=== PATIENT | male | born 1960 | race Two or more races ===

== ENCOUNTER 2019-10-25 10:02 | Emergency (ER) | payer BC ==
[~2019-10-25] VITALS: Ht 180.3 cm; Wt 115.7 kg
--- NOTE | 2019-10-25 10:02 | NUR ---
BIB RA 39 FROM HOME,FOUND ON THE BATHROOM FLOOR BY BROTHER, UNABLE TO GET UP, FELL LAST NIGHT PER PT, NOTED TO BE MORE ALTERED SINCE DAYS ELECTRON BEAM WELDING MACHINE OPERATOR, PT AWAKE, ALERT, -SOB, NAD NOTED, PENDING MD DALY
[2019-10-25] MEDS ORDERED: ASPI-605 PO (10:10)
[2019-10-25 10:25] LABS: BASOPHILS # (AUTO) 0.3 /CMM (0.0-0.2); EOSINOPHILS % (AUTO) 0.5 % (0.0-6.0); HEMATOCRIT 43 % (39-51); LYMPHOCYTES # (AUTO) 0.7 /CMM (0.8-4.8); LYMPHOCYTES % (AUTO) 6.2 % (20.0-44.0); MEAN CORPUSCULAR HGB CONC 35 g/dl (31.0-36.0); MEAN CORPUSCULAR VOLUME 92 fL (80-96); MONOCYTES # (AUTO) 0.6 /CMM (0.1-1.30); MONOCYTES % (AUTO) 5.4 % (2.0-12.0); NEUTROPHILS % (AUTO) 84.9 % (43.0-81.0); PLATELET COUNT (AUTO) 221 /CMM (150-450); WHITE BLOOD COUNT (AUTO) 10.6 K/uL (4.3-11.0)
[2019-10-25 10:39] LABS: CALCIUM, SERUM 9.3 mg/dL (8.5-10.1); CARBON DIOXIDE 30 mmol/L (21-32); CHLORIDE 107 mmol/L (98-107); GLUCOSE 119 mg/dL (74-106); POTASSIUM 3.7 mmol/L (3.5-5.1); SODIUM SERUM 145 mmol/L (136-145); UREA NITROGEN, BLOOD 21 mg/dL (7-18)
[2019-10-25 10:45] LABS: ALANINE AMINOTRANSFERASE 38 U/L (12-78); ALBUMIN 3.7 g/dL (3.4-5.0); ALCOHOL, BLOOD < 3 mg/dL (0-0); ALKALINE PHOSPHATASE 114 U/L (46-116); ASPARTATE AMINOTRANSFERASE 53 U/L (15-37); BILIRUBIN,DIRECT 0.2 mg/dL (0.0-0.2); BILIRUBIN,TOTAL 1.1 mg/dL (0.2-1.0); TOTAL PROTEIN, SERUM 6.6 g/dL (6.4-8.2)
--- NOTE | 2019-10-25 11:13 | NUR ---
PT NEUROLLOGIST: DR MCADAMS [phone]. HOME: [phone] Addendum: 10/25/[address] IZQUIERDO*: [phone]
--- NOTE | 2019-10-25 11:29 | NUR ---
pt unable to provide urine sample at this time, per dr. maloney, urine not important at this time
--- NOTE | 2019-10-25 11:30 | NUR ---
PAGED DR MCADAMS FOR CONSULT
--- NOTE | 2019-10-25 11:40 | NUR ---
PAGED DR CRAWFORD, SENT IMAGES
--- NOTE | 2019-10-25 11:50 | NUR ---
DR CRAWFORD SPEAKING WITH DR OLVERA
--- NOTE | 2019-10-25 11:53 | NUR ---
DR CRAWFORD ACCEPTS PT WILL TRANSFER TO [facility]
--- NOTE | 2019-10-25 11:58 | NUR ---
TATO SNYDER FROM [facility] REQUESTS FACESHEET AND CLINICALS WILL CALL BACK WITH BED INFORMATION
--- NOTE | 2019-10-25 11:59 | NUR ---
FAXED FACESHEET AND CLINICALS TO [facility]
[2019-10-25] MEDS ORDERED: DEXAMETHASONE SOD PHOSPHATE 10 MG in IV D5W 50 ML IV ONE (12:00)
--- NOTE | 2019-10-25 12:23 | NUR ---
TRANSFER INFO: [facility]. PT WILL GO DIRECT ADMIT TO ROOM 4404 BED 1, RN FOR REPORT [phone] OPT 1 EXT [id number]
[2019-10-25] MEDS ORDERED: DEXAMETHASONE SOD PHOSPHATE 10 MG/ML VIAL ONE (12:28)
[2019-10-25] MEDS ORDERED: DEXAMETHASONE SOD PHOSPHATE 10 MG/ML VIAL IV ONE (12:30)
--- NOTE | 2019-10-25 12:31 | NUR ---
[facility] ETA 1330 TRIP#[id number]
--- NOTE | 2019-10-25 13:24 | NUR ---
REPORT GIVEN TO KIRA VARGAS AT [facility]
--- NOTE | 2019-10-25 13:38 | NUR ---
BRYSON CROOKS AT BEDSIDE
--- NOTE | 2019-10-25 14:06 | NUR ---
cancelled transfer to [place] will be going to [facility] instead
--- NOTE | 2019-10-25 14:26 | NUR ---
CALLED DR MCADAMS REGARDING PT TRANSFER, LEFT VOICEMAIL
--- NOTE | 2019-10-25 14:37 | NUR ---
DR MCADAMS: [phone]
[2019-10-25] MEDS ORDERED: IV NS 0.9% 1,000 ML BAG IV ONE (15:00)
--- NOTE | 2019-10-25 15:07 | NUR ---
[facility] called for updates, explained pt's situation, they will keep the bed on standby for now.
--- NOTE | 2019-10-25 15:13 | NUR ---
dr rahman called back with accepting md: dr richey ICU and neurosurgeoon dr. castellanos
--- NOTE | 2019-10-25 15:21 | NUR ---
[facility] 1630 TRIP#[id number]
--- NOTE | 2019-10-25 15:43 | NUR ---
PER JAVIER WOODARD AT [facility], LOCATING ICU BED AND WILL FOLLOW UP IN 15 MINUTES
--- NOTE | 2019-10-25 16:30 | NUR ---
PER RN SUDEEP WOODARD AT [facility], WILL CALL BACK AT 7P TO GIVE ICU BED
--- NOTE | 2019-10-25 17:54 | NUR ---
PER JAVIER WOODARD AT [facility], PT WILL BE ACCEPTED THROUGH THE ER BY DR BERNABE, PLEASE CALL [facility] AT [phone] FOR REPORT Addendum: 10/25/19 at 1958 by YEHUDA CURTAIN SUPERVISOR CHRIS FOR REPORT
--- NOTE | 2019-10-25 17:59 | NUR ---
ADAM RUCKER 193
--- NOTE | 2019-10-25 18:12 | NUR ---
report given to diony france at [facility] for abdiel
--- NOTE | 2019-10-25 19:36 | NUR ---
Patient is resting comfortably in bed with no s/s of pain or discomfort. awaiting for the tranportation. will cont to monitor ,
[2019-10-25 19:45] VITALS: BP 163/84
--- NOTE | 2019-10-25 19:45 | NUR ---
report given to tawanda environmental law professor
--- NOTE | 2019-10-25 20:00 | NUR ---
Patient was transferred to [facility] in stable condition via gurney. all the belongings picked up.
== END 2019-10-25 20:03 | disposition short-term general hospital (02) ==
LOC: ER 10:06
DX: G93.9 Disorder of brain, unspecified (principal); R53.1 Weakness; R79.89 Other specified abnormal findings of blood chemistry; E11.9 Type 2 diabetes mellitus without complications; Z98.890 Other specified postprocedural states; Z88.0 Allergy status to penicillin; Z88.6 Allergy status to analgesic agent; Z79.82 Long term (current) use of aspirin
CPT/HCPCS: 36415; 70450; 71045; 72125; 80048; 80076; 80307; 82550 ×2; 84484; 85025; 85730; 93005; 96374; 99291; J1100; J7040; G0480; J7060

== ENCOUNTER 2020-03-03 06:19 | Inpatient (IN) | payer BC ==
[~2020-03-03] VITALS: Ht 188 cm; Wt 106.1 kg
[~2020-03-03 06:19] MED LIST: ASPI-605 PO
--- NOTE | 2020-03-03 06:26 | NUR ---
PATIENT CAME TO ER BED 4 BIB RA C/O SEIZURE FOR "5 MINUTES", ACCORDING TO EMS. PATIENT ARRIVED TO ER POST-ICTAL, NOT ANSWERING QUESTIONS. ALERT AND AWAKE. PATIENT BREATHING EVENLY AND UNLABORED ON ROOM AIR 100%. CONNECTED TO FRICTION WELDING MACHINE OPERATOR.
--- NOTE | 2020-03-03 06:30 | NUR ---
EKG AT BEDSIDE
--- NOTE | 2020-03-03 06:30 | NUR ---
ER MD LUNDBREG AT BEDSIDE
--- NOTE | 2020-03-03 06:39 | NUR ---
SEIZURE EPISODE ACCURE WITNESSED BY JAVIER CATALAN FOR 3 MINS, ATIVAN 2 MG IM GIVEN PER .
--- NOTE | 2020-03-03 06:39 | NUR ---
DR. LUNDBERG AT BEDSIDE.
[2020-03-03] MEDS ORDERED: LORAZEPAM INJ 2 MG/ML VIAL ONE (06:40)
--- NOTE | 2020-03-03 06:41 | NUR ---
PHARMACY CALLED FOR KEPPRA MEDICATION
--- NOTE | 2020-03-03 06:45 | NUR ---
PT IV LINE ESTABLISHED, BLOOD DRAWN AND SENT TO LAB.
[2020-03-03] MEDS ORDERED: LEVETIRACETAM (500MG) 500 MG/5 ML VIAL IV ONE (06:54)
--- NOTE | 2020-03-03 06:55 | NUR ---
PHARMACY CALLED FOR KEPPRA MEDICATION.
[2020-03-03 06:59] LABS: BASOPHILS % (AUTO) 0.3 % (0.0-2.0); EOSINOPHILS % (AUTO) 0.1 % (0.0-6.0); HEMATOCRIT 41 % (39-51); HEMOGLOBIN 13.5 g/dL (13.5-17.5); LYMPHOCYTES # (AUTO) 2.9 /CMM (0.8-4.8); LYMPHOCYTES % (AUTO) 20.4 % (20.0-44.0); MEAN CORPUSCULAR HGB CONC 33 g/dl (31.0-36.0); MEAN CORPUSCULAR VOLUME 94 fL (80-96); MONOCYTES # (AUTO) 0.9 /CMM (0.1-1.30); MONOCYTES % (AUTO) 6.5 % (2.0-12.0); NEUTROPHILS # (AUTO) 10.2 /CMM (1.8-8.9); NEUTROPHILS % (AUTO) 72.7 % (43.0-81.0); PLATELET COUNT (AUTO) 256 /CMM (150-450); RED BLOOD CELL COUNT(AUTO) 4.35 MIL/uL (4.5-6.0)
[2020-03-03] MEDS ORDERED: LORAZEPAM INJ 2 MG/ML VIAL IM ONE (07:00)
[2020-03-03] MEDS ORDERED: LEVETIRACETAM (500MG) 500 MG in IV NS 0.9% 100 ML IV ONE (07:00)
--- NOTE | 2020-03-03 07:02 | NUR ---
PT 2ND WITNESSED SEIZURE EPISODE OCCURRED FOR 2MINS AND 30SECS.
[2020-03-03 07:14] LABS: ALBUMIN 3.2 g/dL (3.4-5.0); BILIRUBIN,DIRECT 0.1 mg/dL (0.0-0.2); BILIRUBIN,TOTAL 0.6 mg/dL (0.2-1.0); CALCIUM, SERUM 8.6 mg/dL (8.5-10.1); CREATININE 1.2 mg/dL (0.6-1.3); POTASSIUM 3.5 mmol/L (3.5-5.1); TOTAL PROTEIN, SERUM 6.1 g/dL (6.4-8.2)
--- NOTE | 2020-03-03 07:15 | NUR ---
PT PRIMARY ONCOLOGIST CONTACT INFO: DR. HALEIGH IZQUIERDO [email or web address]
--- NOTE | 2020-03-03 07:20 | NUR ---
REPORT GIVEN TO EDA HERRERA FOR JESSE.
--- NOTE | 2020-03-03 07:20 | NUR ---
PLASTIC CUTTER AT BEDSIDE TO TAKE PATIENT TO CT.
--- NOTE | 2020-03-03 07:20 | NUR ---
REPORT RECEIVED FROM ROXY VICK RN FOR JESSE
--- NOTE | 2020-03-03 07:22 | NUR ---
PATIENT WHEELED OUT VIA GURNEY FOR CT SCAN
[2020-03-03 07:27] LABS: LYMPHOCYTES % (MANUAL) 23 % (16-48); MONOCYTES % (MANUAL) 3 % (0-11.0); NEUTROPHILS % (MANUAL) 74 (42-76)
[2020-03-03] MEDS ORDERED: LORAZEPAM INJ 2 MG/ML VIAL IV ONE (07:30)
--- NOTE | 2020-03-03 07:37 | NUR ---
BACK FROM CT SCAN.
[2020-03-03] MEDS ORDERED: INSU300I SQ (07:56)
[2020-03-03] MEDS ORDERED: ATOR40TA PO (07:56)
[2020-03-03] MEDS ORDERED: LACO50TA2 PO (07:56)
[2020-03-03] MEDS ORDERED: APIX2.5T PO (07:56)
[2020-03-03] MEDS ORDERED: LOSA100T31 PO (07:56)
[2020-03-03] MEDS ORDERED: DEXA2TAB PO (07:56)
[2020-03-03] MEDS ORDERED: CHOL200076 PO (07:56)
[2020-03-03] MEDS ORDERED: MULT-447 PO (07:56)
[2020-03-03] MEDS ORDERED: INSU100I14 SQ (07:56)
[2020-03-03] MEDS ORDERED: AMLO5TAB9 PO (07:56)
[2020-03-03] MEDS ORDERED: CHLO25TA2 PO (07:56)
[2020-03-03] MEDS ORDERED: [UNRECOGNIZED DRUG - CODE] PO (07:56)
[2020-03-03] MEDS ORDERED: LEVETIRACETAM (500MG) 1,500 MG in IV NS 0.9% 100 ML IV SCH ×2 (09:00→10:30)
--- NOTE | 2020-03-03 09:10 | NUR ---
ON 91% O2 SATURATION AT ROOM AIR, PLACED ON 2LPM NC
--- NOTE | 2020-03-03 10:13 | NUR ---
CALLED DR. HALEIGH IZQUIERDO TO FOLLOW UP WITH STATUS OF PT EARLE. HE SPOKE WITH CASE MANAGEMENT TO SEE IF THERE WAS BED AVAILABILITY. FOR NOW NO STATUS ON BED BUT CM WILL REACH OUT TO US TO SET UP TRANSFER INFORMATION WHEN AVAILABLE.
--- NOTE | 2020-03-03 12:02 | NUR ---
CALLED NURSING SUP FOR TELE BED.
--- NOTE | 2020-03-03 12:22 | NUR ---
ASHLYN SHEETS GAVE TELE BED [phone]. BETHANY IS THE NURSE.
--- NOTE | 2020-03-03 12:46 | NUR ---
PAGED [facility].
--- NOTE | 2020-03-03 12:55 | NUR ---
REPORT GIVEN TO BETHANY HERRERA OF TELE UNIT
[2020-03-03 13:10] VITALS: BP 147/97
--- NOTE | 2020-03-03 13:10 | NUR ---
Received patient via [facility]. Deep sleep, arosable to touch and name. Patient adm. to Tele, currently SR HR 65. Patient present with 2 IV lines ; LAC 18 hl. r wrist #20 g , both flushing well. Patient has multiple old scars and dry scabs on arms and legs, redness on scrotum and lower back. Pictures are taken and placed in the chart. Patient has no belonging. Safety measures observed , seizure precautions initiated. Suction set up. VS are stable , saturation 97% on 2l O2. Saturation on room air 91 %. Awaiting for adm. orders. Will continue to monitor
[2020-03-03] MEDS ORDERED: ZOLPIDEM TARTRATE 5 MG TABLET PO PRN (14:00)
[2020-03-03] MEDS ORDERED: MAG HYDROX/AL HYDROX/SIMETH 30 ML UDC PO PRN (14:00)
[2020-03-03] MEDS ORDERED: Z GUARD REMEDY 2 OZ OINT TP PRN (14:00)
[2020-03-03] MEDS ORDERED: ONDANSETRON HCL/PF 4 MG/2 ML VIAL IVP PRN (14:00)
[2020-03-03] MEDS ORDERED: HYDROCODONE/APAP 5/325MG 1 EACH TABLET PO PRN (14:00)
[2020-03-03] MEDS ORDERED: MAGNESIUM HYDROXIDE 30 ML UDC PO PRN (14:00)
[2020-03-03] MEDS ORDERED: ACETAMINOPHEN 325 MG TABLET PO PRN (14:00)
[2020-03-03] MEDS ORDERED: LORAZEPAM INJ 2 MG/ML VIAL IV PRN (14:30)
[2020-03-03] MEDS ORDERED: TRAMADOL HCL 50 MG TABLET PO PRN (15:00)
[2020-03-03 16:00] VITALS: BP 132/91
[2020-03-03 17:00] VITALS: BP 132/91
[2020-03-03] MEDS: LACOSAMIDE 100 MG in IV NS 0.9% 50 ML IV SCH (18:35)
--- NOTE | 2020-03-03 18:51 | NUR ---
Patient seen by Dr. Jackson. Patient more awake now, responding to stimuli. VS remain stable. Saturation 98% on 2 L O2. Safety precautions implemented. On tele monitor SR with HR 62. Patient kepr comfortable. Will endorse to next shift for JESSE.
--- NOTE | 2020-03-03 19:20 | NUR ---
RESTAURANT AND BAR MANAGER OPENING NOTES RECEIVED PATIENT SLEEPING IN BED, IS VERY DROWSY, AWAKENS TO NAME AND BY TOUCH. ON 2L NC. NO S/S OF ACUTE RESPIRATORY DISTRESS OR PAIN NOTED. TELE MONITOR READING NSR, HEART RATE 60. IV PRESENT ON LEFT AC, SIZE 18, INTACT AND PATENT. SAFETY MEASURES IN PLACE. BED LOCKED, ALARM ON, SIDE RAILS X3, AND PADDED FOR SEIZURE PRECAUTION, CALL LIGHT WITHIN REACH. WILL CONTINUE TO MONITOR.
[2020-03-03 20:00] VITALS: BP 134/71
[2020-03-03] MEDS: LEVETIRACETAM (500MG) 500 MG in IV NS 0.9% 100 ML IV SCH (20:39)
[2020-03-03] MEDS ORDERED: IV D5/0.45 NACL 1,000 ML IV ONE (21:30)
[2020-03-04] VITALS: BP_SYST 105; BP_SYST 149; BP_DIAS 56; BP_DIAS 95
[2020-03-04] MEDS: DEXTROSE 50%-WATER 50 ML DISP.SYRIN IV PRN ×2 (00:57→06:07)
[2020-03-04] MEDS: BLOOD SUGAR DIAGNOSTIC 1 EACH STRIP IN SCH ×6 (01:11→21:25)
--- NOTE | 2020-03-04 01:30 | NUR ---
NURSE SEXUAL ASSAULT NOTES PATIENT'S BLOOD SUGAR 46. PATIENT IS DROWSY, BUT OPENS EYES WHEN NAME IS CALLED. BLOOD SUGAR BACK TO 185 AFTER PRN DEXTROSE WAS PUSHED VIA IV.
[2020-03-04 04:00] VITALS: BP 125/57
[2020-03-04 06:17] LABS: BASOPHILS % (AUTO) 0.3 % (0.0-2.0); EOSINOPHILS % (AUTO) 0.7 % (0.0-6.0); HEMATOCRIT 39 % (39-51); HEMOGLOBIN 13.4 g/dL (13.5-17.5); LYMPHOCYTES # (AUTO) 1.5 /CMM (0.8-4.8); LYMPHOCYTES % (AUTO) 16.9 % (20.0-44.0); MEAN CORPUSCULAR HGB CONC 34 g/dl (31.0-36.0); MEAN CORPUSCULAR VOLUME 92 fL (80-96); MONOCYTES # (AUTO) 0.5 /CMM (0.1-1.30); MONOCYTES % (AUTO) 5.7 % (2.0-12.0); NEUTROPHILS # (AUTO) 6.6 /CMM (1.8-8.9); NEUTROPHILS % (AUTO) 76.4 % (43.0-81.0); PLATELET COUNT (AUTO) 190 /CMM (150-450); RED BLOOD CELL COUNT(AUTO) 4.25 MIL/uL (4.5-6.0); WHITE BLOOD COUNT (AUTO) 8.7 K/uL (4.3-11.0)
--- NOTE | 2020-03-04 06:40 | NUR ---
CAREER TECHNICAL EDUCATION INSTRUCTOR NOTES PATIENT'S BLOOD SUGAR 46. PATIENT IS AWAKE AND ALERT TO NAME, HOWEVER IS STILL CONFUSED. PRN DEXTROSE PUSHED VIA IV. BLOOD SUGAR RECHECKED, 126.
[2020-03-04 07:24] LABS: ALBUMIN 2.6 g/dL (3.4-5.0); BILIRUBIN,DIRECT 0.1 mg/dL (0.0-0.2); BILIRUBIN,TOTAL 0.7 mg/dL (0.2-1.0); CALCIUM, SERUM 8.8 mg/dL (8.5-10.1); CREATININE 0.7 mg/dL (0.6-1.3); MAGNESIUM 2.5 mg/dL (1.8-2.4); PHOSPHORUS 3.1 mg/dL (2.5-4.9); POTASSIUM 3.2 mmol/L (3.5-5.1); TOTAL PROTEIN, SERUM 5.5 g/dL (6.4-8.2)
--- NOTE | 2020-03-04 07:35 | NUR ---
MAGAZINE REPAIRER CLOSING NOTES PATIENT SLEEPING IN BED, EASY TO AWAKEN. ON 2L NC. NO S/S OF ACUTE RESPIRATORY DISTRESS OR PAIN NOTED. TELE MONITOR READING NSR, HEART RATE 61. IV PRESENT ON LEFT AC, SIZE 18, INTACT AND PATENT WITH D5 1/2 NS RUNNING AT 75 ML/HR. SAFETY MEASURES IN PLACE. BED LOCKED, ALARM ON, SIDE RAILS X3, AND PADDED FOR SEIZURE PRECAUTION, CALL LIGHT WITHIN REACH. WILL ENDORSE TO DAY SHIFT NURSE PLAN OF CARE.
--- NOTE | 2020-03-04 07:40 | NUR ---
TELE/RN OPENING NOTES PATIENT SLEEPING IN BED, EASY TO AWAKEN. ON 2L NC. NO S/S OF ACUTE RESPIRATORY DISTRESS OR PAIN NOTED. IV PRESENT ON LEFT AC, SIZE 18, INTACT AND PATENT WITH D5 1/2 NS RUNNING AT 75 ML/HR. SAFETY MEASURES IN PLACE. BED LOCKED, ALARM ON, SIDE RAILS X3, AND PADDED FOR SEIZURE PRECAUTION, CALL LIGHT WITHIN REACH. WILL CONTINUE TO MONITOR.
[2020-03-04 08:05] VITALS: BP 125/57
--- NOTE | 2020-03-04 09:00 | NUR ---
TELE/RN NOTES PATIENT REMOVED THE IV ACCESS. INITIATED IV INSERTION AT THE RIGHT FOREARM 18G. PATENT AND INTACT.
[2020-03-04] MEDS: LACOSAMIDE 100 MG in IV NS 0.9% 50 ML IV SCH ×2 (09:41→20:07)
[2020-03-04] MEDS: LEVETIRACETAM (500MG) 500 MG in IV NS 0.9% 100 ML IV SCH ×3 (10:42→21:25)
[2020-03-04] MEDS: POTASSIUM CHLORIDE 20 MEQ TAB.PRT.SR PO SCH ×2 (11:26→12:06)
[2020-03-04] MEDS: INSULIN REGULAR, HUMAN 100 UNIT/ML 3 ML VIAL SQ PRN ×2 (12:22→17:31)
--- NOTE | 2020-03-04 13:13 | NUR ---
TELE/RN NOTES BS 323MG/DL INSULIN 12 UNIT WAS GIVEN.
[2020-03-04 16:00] VITALS: BP 123/82
--- NOTE | 2020-03-04 16:04 | NUR ---
TELE/RN NOTES PATIENT IS PULLING IV LINE AND GETTING UP ON BED MD IS AWARE AND ORDER BILATERAL SOFT RESTRAINTS.
--- NOTE | 2020-03-04 17:09 | NUR ---
TELE/RN NOTES ERICK BROTHER OF THE PATIENT WANT TO TALK TO THE DOCTOR. DOCTOR BRIDGETTE IS AWARE.
--- NOTE | 2020-03-04 19:30 | NUR ---
FARM INSTRUCTOR OPENING NOTES RECEIVED PATIENT IN BED. A/OX2-3. TOLERATING ROOM AIR. RESPIRATIONS ARE EVEN AND UNLABORED. NO S/S SOB NOTED. DENIES PAIN AT THIS TIME. EXTERNAL TELE MONITOR READS SINUS RHYTHM HR 80 WITH PAC. IN NO APPARENT DISTRESS. IV ACCESS IN RFA#18 PATENT AND SALINE LOCKED. PATIENT IS ON BILATERAL SOFT WRIST RESTRAINTS, GOOD CAP REFILL NOTED, NO REDNESS NOTED, 2 FINGER BREATHS BETWEEN SKIN AND RESTRAINT. BED IS LOW AND LOCKED HOB ELEVATED IN SEMI FOWLERS, SIDE RAILS UP X4, SEIZURE PRECAUTIONS IN PLACE. BED ALARM ON. CALL LIGHT WITHIN REACH. WILL CONTINUE TO MONITOR.
--- NOTE | 2020-03-04 19:47 | NUR ---
TELE/RN CLOSING NOTES PATIENT IS ON BED. PATIENT IS ALERT, ORIENTED X 2-3. PATIENT IS LETHARGIC BUT EASILY AROUSABLE. PATIENT IS WITH BILATERAL RESTRAIN. PATIENT NO APPARENT DISTRESS NOTED.PATIENT DENIES PAIN AT THIS TIME. NO S/S OF SEIZURE THE WHOLE SHIFT. SEEN AND EXAMINED BY MD WITH ORDER MADE AND CARRIED OUT. ALL DUE MEDS WAS GIVEN. BED IN LOWEST POSITION SIDE RAILS UP X 2. CALL LIGHT WITHIN REACH. WILL ENDORSED TO PARTS COUNTER SPECIALIST FOR JESSE.
[2020-03-04 20:00] VITALS: BP 148/84
[2020-03-04 20:26] VITALS: BP 148/74
[2020-03-05] MEDS ORDERED: HYDROCORTISONE SOD SUCCINATE 100 MG/2 ML VIAL IV SCH
[2020-03-05] MEDS: BLOOD SUGAR DIAGNOSTIC 1 EACH STRIP IN SCH ×6 (00:25→21:41)
[2020-03-05 04:00] VITALS: BP 147/81
[2020-03-05 05:05] VITALS: BP 147/81
[2020-03-05] MEDS: DEXAMETHASONE SOD PHOSPHATE 4 MG/ML VIAL IV SCH ×3 (05:23→17:17)
--- NOTE | 2020-03-05 06:58 | NUR ---
CARDROOM HAND CLOSING NOTES PATIENT IN BED. A/OX2-3. TOLERATING ROOM AIR. RESPIRATIONS ARE EVEN AND UNLABORED. NO SOB NOTED. NO C/O PAIN. EXTERNAL TELE MONITOR READS SINUS RHYTHM HR 67. NO DISTRESS NOTED. IV ACCESS MAINTAINED IN RFA#18 PATENT AND SALINE LOCKED. PATIENT REMAINS ON BILATERAL SOFT WRIST RESTRAINTS, GOOD CAP REFILL NOTED, NO REDNESS NOTED, 2 FINGER BREATHS BETWEEN SKIN AND RESTRAINT. BED REMAINS LOW AND LOCKED HOB ELEVATED IN SEMI FOWLERS, SIDE RAILS UP X4, SEIZURE PRECAUTIONS IN PLACE. BED ALARM ON. CALL LIGHT WITHIN REACH. WILL ENDORSE TO NEXT SHIFT. WILL EXPRESS BROTHERS CONCERNS FOR PATIENT (PRIMARY CIGAR INSPECTOR FOR PATIENT): WANTS TO SPEAK WITH MD REGARDING PATIENT WANTS TO BRING PATIENTS CHEMOTHERAPY DRUGS; NEEDS TO TAKE TWICE DAILY WANTS TO INFORM MD THAT PATIENT STOPPED TAKING KEPPRA D/T SIDE EFFECTS INCLUDING DROWSINESS AND CONFUSION WANTS TO INFORM CARE TEAM THAT PATIENT WAS SUPPOSED TO RECEIVE RADIATION YESTERDAY 03/04.
--- NOTE | 2020-03-05 07:30 | NUR ---
MEDICAL ACCOUNTING CLERK OPENING NOTES RECEIVED PT IN BED, AWAKE, A/O X1-2.PT ON SUPPLEMENTARY OXYGEN AT 2LPM VIA NC, WITH NO ACUTE RESPIRATORY DISTRESS NOTED. PT DENIES ANY PAIN OR DISCOMFORT AT THIS TIME. ON TELEMONITORING WITH PACS, SR HR 73. rFA G18 TKO NS RUNNING, INTACT AND OPERATIONAL. PER NIGHT NURSE VONNIE, PT IS SCHEDULED FOR MRI TODAY AND CONSENT GOT VIA PHONE WITH BROTHER/ERICK. ALSO, BROTHER WANTED TO TALK TO MD/HOSPITALIST REGARDING CONDITIONOF PT AND WANTED TO INFORM ABOUT THE RADIATION THERAPY OF PT THAT WAS MISSED YESTERDAY. RN TO FOLLOW UP WITH MD. PT KEPT COMFORTABLE IN BED. SEIZURE PRECAUTIONS MAINTAINED, PADDED SIDE RAILS. CALL LIGHT KEPT WITHIN REACH. PT'S BED IN LOWEST, LOCKED POSITION WITH SRX4. WILL CONTINUE PLAN OF CARE.
[2020-03-05 08:00] VITALS: BP 160/88
[2020-03-05] MEDS: LACOSAMIDE 100 MG in IV NS 0.9% 50 ML IV SCH ×2 (08:37→21:41)
--- NOTE | 2020-03-05 08:40 | NUR ---
SPIKE DRIVER NOTES SEEN AND EVALUATED BY DR. ANGELES. RN INFORMED MD REGARDING BROTHER/ERICK'S WISH TO SPEAK TO HIM AND INFORMED REGARDING CHEMO MEDS AND RADIATION THERAPY THAT WAS MISSED. PER MD/KR, "I'LL CALL THE BROTHER LATER" AND ADDED "YES, I DO HAVE THE NUMBER." WILL CONTINUE TO MONITOR PT.
[2020-03-05 08:45] LABS: BASOPHILS % (AUTO) 0.2 % (0.0-2.0); HEMATOCRIT 41 % (39-51); HEMOGLOBIN 13.9 g/dL (13.5-17.5); LYMPHOCYTES # (AUTO) 0.5 /CMM (0.8-4.8); LYMPHOCYTES % (AUTO) 4.8 % (20.0-44.0); MEAN CORPUSCULAR HGB CONC 34 g/dl (31.0-36.0); MEAN CORPUSCULAR VOLUME 92 fL (80-96); MONOCYTES # (AUTO) 0.4 /CMM (0.1-1.30); MONOCYTES % (AUTO) 4.1 % (2.0-12.0); NEUTROPHILS # (AUTO) 9.5 /CMM (1.8-8.9); NEUTROPHILS % (AUTO) 90.9 % (43.0-81.0); PLATELET COUNT (AUTO) 212 /CMM (150-450); WHITE BLOOD COUNT (AUTO) 10.5 K/uL (4.3-11.0)
[2020-03-05 09:00] LABS: CALCIUM, SERUM 8.8 mg/dL (8.5-10.1); CREATININE 0.9 mg/dL (0.6-1.3); MAGNESIUM 2.3 mg/dL (1.8-2.4); PHOSPHORUS 3.4 mg/dL (2.5-4.9)
--- NOTE | 2020-03-05 09:47 | NUR ---
CUTTER V GROOVE NOTES PT LEFT THE UNIT FOR MRI/BRAIN PROCEDURE. TRANSPORTED PT VIA GURNEY. IV MEDICINE, VIMPAT, PAUSED AT THIS TIME.
--- NOTE | 2020-03-05 10:41 | NUR ---
WOUND CARE: PT OFF UNIT AT THIS TIME. WILL SEE PT PT CONDITION PERMITS.
--- NOTE | 2020-03-05 10:47 | NUR ---
CROWN IRONER OPERATOR NOTES PT JUST CAME BACK FROM MRI. IV MED RESUMED. HOOKED BACK TO TELEMONITORING. WILL CONTINUE TO MONITOR.
[2020-03-05] MEDS: LEVETIRACETAM (500MG) 500 MG in IV NS 0.9% 100 ML IV SCH ×2 (10:54→21:41)
[2020-03-05] MEDS: INSULIN REGULAR, HUMAN 100 UNIT/ML 3 ML VIAL SQ PRN ×3 (13:54→21:47)
[2020-03-05 16:00] VITALS: BP 153/77
--- NOTE | 2020-03-05 16:22 | NUR ---
SHOVEL HANDLE ASSEMBLER NOTES RECEIVED CALL FROM DR. ROBERTS. PER , SHE'LL SPEAK TO PMD OF PT AND PLAN IS FOR PT TO GO HOME WITH HOMEHEALTH AND CONTINUE CHEMO MEDS. WILL ENDORSE TO INCOMING NIGHT NURSE WELL.
--- NOTE | 2020-03-05 18:36 | NUR ---
CALCULATION REVIEWER CLOSING NOTES PT REMAINS IN BED, INTERMITTENTLY DOZING OFF, A/O X2-3. PT ON SUPPLEMENTARY OXYGEN AT 2LPM VIA NC, WITH NO ACUTE RESPIRATORY DISTRESS NOTED. PT DENIES ANY PAIN OR DISCOMFORT AT THIS TIME. ON TELEMONITORING WITH PACS, SR HR 75. RFA G18 TKO NS RUNNING, INTACT AND OPERATIONAL. PT KEPT COMFORTABLE IN BED. SEIZURE PRECAUTIONS MAINTAINED, PADDED SIDE RAILS. ALL NEEDS AND CARE ATTENDED. CALL LIGHT KEPT WITHIN REACH. PT'S BED IN LOWEST, LOCKED POSITION WITH SRX4. WILL ENDORSE TO INCOMING NIGHT NURSE FOR JESSE.
--- NOTE | 2020-03-05 19:15 | NUR ---
RN NOTES: RECEIVED ASLEEP ON BED IN HIGH FOWLERS POSITION, BREATHING SPONTANEOUSLY WITH O2 AT 2L/MIN VIA NC, SEIZURE PRECAUTION NOTED, WITH PADDED SIDE RAILS, ON TELE MONITOR SINUS RHYTHM RATE-67, ON BLOOD SUGAR MONITOR, IV SITE ON RFA G#18 TKO, HE IS NO LONGER RESTLESS PER ENDORSEMENT THEREFORE RESTRAINT ORDER WAS NOT RENEW ANYMORE, PER RN-MORNING SHIFT FOR MED-[facility] TOMORROW,FURTHERMORE, AROUND 1800 ONCO- OK TO TEMPORARILY HOLD CHEMO DRUGS AND RADIATION SESSION WHILE IN HOSPITAL,ONCE HE WILL BE DISCHARGE BACK HOME, H/H WILL BE ARRANGE AND RESUME 2 TREATMENT TOGETHER PER ENDORSEMENT. -ON CLOSE WATCH, FREQUENT VISUAL CHECK DONE,SEIZURE, FALL,SAFETY AND ASPIRATION PRECAUTION OBSERVED, BED LOW AND LOCKED, CALL LIGHT WITHIN EASY REACH.
[2020-03-05 20:00] VITALS: BP 157/81
[2020-03-06] VITALS: BP 144/72
[2020-03-06 00:01] VITALS: BP 149/72
[2020-03-06] MEDS: DEXAMETHASONE SOD PHOSPHATE 4 MG/ML VIAL IV SCH ×4 (00:29→18:20)
[2020-03-06] MEDS: BLOOD SUGAR DIAGNOSTIC 1 EACH STRIP IN SCH ×5 (00:44→17:15)
[2020-03-06] MEDS: INSULIN REGULAR, HUMAN 100 UNIT/ML 3 ML VIAL SQ PRN ×5 (00:46→17:20)
--- NOTE | 2020-03-06 02:57 | NUR ---
RN NOTES: -AT 21OO BLOOD SUGAR CHECK-276, INSULIN 9 UNITS GIVEN, CONTINUE TO MONITOR FOR SIGN OF HYPER AND HYPOGLYCEMIA. -AT 0100 BLOOD SUGAR CHECK-295, INSULIN 9 UNITS GIVEN , PATIENT IS ASLEEP, CONTINUE TO MONITOR FOR SEIZURE. NO SIGN OF AGITATION NOTED, DUE IV MEDS GIVEN ORDERED.
[2020-03-06 04:00] VITALS: BP 166/85
--- NOTE | 2020-03-06 05:15 | NUR ---
RN NOTES: LATEST BLOOD SUGAR-253, 9 UNITS INSULIN GIVEN PER SCALE, KEPT ON CLOSE WATCH, AWAKE IN BETWEEN WHEN HE HEARD HIS ROOM MATE SHOUTING WHEN HE WAS CHANGE. NO PAIN OF DISCOMFORT.
--- NOTE | 2020-03-06 06:38 | NUR ---
RN NOTES: MORNING CARE DONE, STILL ON SR RATE-56, NO PAIN OR DISCOMFORT, SLEEP WELL IN THE NIGHT, SKIN TREATMENT DONE, NO SEIZURE NOTED IN THE ENTIRE SHIFT, ENDORSED FOR CONTINUITY OF CARE TO FOLLOW UP WITH PMD IF HE CALL PATIENT'S BROTHER, HE HAS MANY CONCERN HE WANTS TO DISCUSSED.
--- NOTE | 2020-03-06 07:10 | NUR ---
RN OPENING NOTES RECEIVED PATIENT IN BED RESTING. A/OX2-3,LETHARGIC. NOT IN ANY FORM OF DISTRESS. NO SOB. DENIED PAIN OR DISCOMFORT AT THIS TIME. IV ACCESS INTACT AND PATENT. KEPT PATIENT SAFE AND COMFORTABLE. BED IN LOW/LOCKED POSTION. SIDERAILS UPX2 CALL LIGHT IN REACH. WILL CONT TO MONITOR ACCORDINGLY.
[2020-03-06 08:00] VITALS: BP 149/69
[2020-03-06] MEDS: LEVETIRACETAM (500MG) 500 MG in IV NS 0.9% 100 ML IV SCH (09:53)
[2020-03-06] MEDS: LACOSAMIDE 100 MG in IV NS 0.9% 50 ML IV SCH (10:43)
[2020-03-06] MEDS ORDERED: LEVE500T9 PO (10:51)
[2020-03-06 16:00] VITALS: BP 150/84
--- NOTE | 2020-03-06 17:50 | NUR ---
rn notes Patient for discharge. iv access removed and skin photos taken. patient in stable condition, accompanied patient down to the lobby via wheelchair for discharge, patient's brother waiting at outside the lobby. Placed patient inside the car but patient's brother changed his mind not to transport patient due to unsteady gait and he cant help patient by himself. Patient's brother talked to case management Chung. Ambulance transport was arranged instead to be picker by 1929. 1814: took patient back from the car to the wheelchair and brought him back to the room. 1824: situated patient inside the room and awaiting for ambulance transport coming at 1929. patient in stable condition.
--- NOTE | 2020-03-06 18:25 | NUR ---
rn notes situated patient in the room in stable condition. to be picked up by ambulance at 1930
--- NOTE | 2020-03-06 18:25 | NUR ---
rn notes unable to put iv access, patient is hard stick. unable to give Decadron iv at this time. will re-attempt to put an iv access.
--- NOTE | 2020-03-06 18:26 | NUR ---
rn notes patient resting comfortably in bed. a/o x3. not in any form of distress. no sob. denied any chest pain or discomfort. bed in low/locked position, siderails upx2, call light in reach.will endorse accordingly
[2020-03-06] MEDS ORDERED: EPINEPHRINE (1:10,000) SYRINGE 1 MG/10 ML DISP.SYRIN IVP ONE (19:04)
--- NOTE | 2020-03-06 19:05 | NUR ---
1904 ARIADNE Tinoco reported that patient is unresponsive. Checked patient and found unresponsive, no breathing and no pulse. CODE BLUE ACTIVATED. BS= 177. QE=959/21, HR= 234. 1920: Dr Rowe pronounce patients . 1929: Chung(son) Notified. 1944: Dr Jolly made aware. 1944: Called [facility]
[2020-03-06] MEDS ORDERED: LEVETIRACETAM (250 MG) 250 MG TABLET PO SCH (21:00)
[2020-03-06] MEDS ORDERED: LACOSAMIDE 50 MG TABLET PO SCH (21:00)
== END 2020-03-06 19:05 | disposition expired | DRG 54 ==
LOC: ER 06:21 → TELE 12:40 → MED 03-06 13:38
PROVIDERS: ADMIT Student in an Organized Health Care Education/Training Program; ATTEND Internal Medicine
DX: C71.9 Malignant neoplasm of brain, unspecified (principal); G93.6 Cerebral edema; N17.0 Acute kidney failure with tubular necrosis; E44.1 Mild protein-calorie malnutrition; G93.40 Encephalopathy, unspecified; E86.0 Dehydration; E11.9 Type 2 diabetes mellitus without complications; I25.10 Atherosclerotic heart disease of native coronary artery without angina pectoris; G40.909 Epilepsy, unspecified, not intractable, without status epilepticus; Z88.5 Allergy status to narcotic agent; Z88.0 Allergy status to penicillin; Z79.4 Long term (current) use of insulin; Z79.82 Long term (current) use of aspirin; Z79.899 Other long term (current) drug therapy; Z98.890 Other specified postprocedural states; W19.XXXA Unspecified fall, initial encounter; Z91.81 History of falling; Y92.009 Unspecified place in unspecified non-institutional (private) residence as the place of occurrence of the external cause; D72.829 Elevated white blood cell count, unspecified; Z95.1 Presence of aortocoronary bypass graft; R74.0 Nonspecific elevation of levels of transaminase and lactic acid dehydrogenase [LDH]; T42.4X5A Adverse effect of benzodiazepines, initial encounter
CPT/HCPCS: 36415; 70450-TC; 70553-TC; 71045-TC; 80048-TC; 80061-TC; 80076-TC; 82947-TC; 82962-TC; 83735-TC; 84100-TC; 85025-TC; 87081-TC; 92611-TC; 92950-TC; 95819-TC; 97110-TC; 97112-TC; 97530-TC; A4216; G0378; J0171; J1100; J1815; J1953; J2060; J3490; J7030; J7050